=== PATIENT | female | born 1985 | race Hispanic/Latino ===

== ENCOUNTER 2021-11-17 07:34 | Inpatient (IN) | payer OTHER ==
[~2021-11-17] VITALS: Ht 172.7 cm; Wt 77.1 kg
[2021-11-17] MEDS ORDERED: EPHEDRINE SULFATE 50 MG/ML AMPULE IVP PRN (08:30)
[2021-11-17] MEDS ORDERED: PROMETHAZINE HCL 25 MG/ML 1ML AMPULE IM ONE (08:30)
[2021-11-17] MEDS ORDERED: MEPERIDINE-PF 50 MG/ML SYG IVP ONE (08:30)
[2021-11-17] MEDS ORDERED: LACTATED RINGERS 1000ML 1,000 ML IV PRN (08:30)
[2021-11-17] MEDS ORDERED: AMPICILLIN 2GM+NS 100ML 100 ML IV SCH (08:30)
[2021-11-17] MEDS ORDERED: LACTATED RINGERS 500 ML 500 ML IV PRN (08:30)
[2021-11-17] MEDS ORDERED: NALOXONE HCL 0.4 MG/1 ML ML IV PRN (08:30)
[2021-11-17 08:56] LABS: HEMATOCRIT 37.8 % (36-48); MEAN CORPUSCULAR HEMOGLOBIN 33.2 pg (27.0-33.0); MEAN CORPUSCULAR HGB CONC 34.7 g/dL (32.0-36.0); MEAN CORPUSCULAR VOLUME 95.9 fL (79-99); RED BLOOD CELL COUNT(AUTO) 3.94 MIL/uL (4.00-5.50); RED CELL DISTRIBUTION WIDTH 12.2 % (11.0-15.5); WHITE BLOOD COUNT (AUTO) 10.1 K/uL (4.8-10.8)
[2021-11-17 08:58] LABS: APPEARANCE,URINE Clear (CLEAR); BILIRUBIN,URINE Negative (NEGATIVE); COLOR,URINE Yellow (YELLOW); GLUCOSE, URINE (UA) Negative (NEGATIVE); KETONES,URINE Negative (NEGATIVE); LEUKOCYTE ESTERASE ,URINE Trace (NEGATIVE); NITRATE,URINE Negative (NEGATIVE); OCCULT BLOOD,URINE Negative (NEGATIVE); PH,URINE 6.5 (5.0-8.0); PROTEIN,URINE Negative (NEGATIVE)
[2021-11-17 09:05] LABS: AMPHET/METH SCREEN,URINE NEGATIVE (NEGATIVE); BARBITURATE SCREEN, URINE NEGATIVE (NEGATIVE); BENZODIAZEPINES SCREEN,URINE NEGATIVE (NEGATIVE); CANNABINOID SCREEN,URINE NEGATIVE (NEGATIVE); COCAINE SCREEN,URINE NEGATIVE (NEGATIVE); OPIATE SCREEN,URINE NEGATIVE (NEGATIVE); PHENCYCLIDINE SCREEN,URINE NEGATIVE (NEGATIVE)
[2021-11-17 09:14] LABS: BACTERIA,URINE Few /HPF (None Seen); RBC,URINE 0-1 /HPF (0-1); WBC,URINE 0-1 /HPF (0-1)
[2021-11-17] MEDS ORDERED: LIDOCAINE HCL 1% 20 ML VIAL ONE (10:43)
[2021-11-17] MEDS ORDERED: METHYLERGONOVINE MALEATE 0.2 MG/1 ML ML ONE (11:20)
[2021-11-17] MEDS ORDERED: OXYTOCIN-LR 20 UNITS/1000 ML 1,000 ML IV ONE (11:26)
[2021-11-17] MEDS ORDERED: OXYTOCIN-LR 20 UNITS/1000 ML 1,000 ML IV SCH ×2 (12:00→12:30)
[2021-11-17] MEDS ORDERED: ACETAMINOPHEN 325 MG TAB PO PRN (12:30)
[2021-11-17] MEDS ORDERED: BENZOCAINE/LANOLIN/ALOE VERA 60 ML AEROSOL TP PRN (12:30)
[2021-11-17] MEDS ORDERED: LANOLIN 30GM OINTMENT TP PRN (12:30)
[2021-11-17] MEDS ORDERED: MEASLES/MUMPS/RUBELLA VACCINE, LIVE 0.5 ML/VIAL SQ PRN (12:30)
[2021-11-17] MEDS ORDERED: ACETAMINOPHEN WITH CODEINE 1 TAB TAB PO PRN (12:30)
[2021-11-17] MEDS ORDERED: WITCH HAZEL 1 PAD TP PRN (12:30)
[2021-11-17] MEDS ORDERED: IBUPROFEN 600 MG TABLET PO PRN (12:30)
[2021-11-17] MEDS ORDERED: DIPH,PERTUSS(ACELL),TET VAC/PF 0.5 ML VIAL IM PRN (12:30)
[2021-11-17 13:30] VITALS: BP 115/62
[2021-11-17 16:00] VITALS: BP 101/61
[2021-11-17] MEDS ORDERED: VALA500T PO (17:01)
[2021-11-17] MEDS ORDERED: PREN1TAB63 PO (17:01)
[2021-11-17] MEDS ORDERED: FLU VACC QS2021-22(6MOS UP)/PF 60 MCG/0.5 ML ML IM SCH (17:30)
[2021-11-17] MEDS ORDERED: FLU VACC QS2021-22(6MOS UP)/PF 60 MCG/0.5 ML ML IM ONE (18:00)
[2021-11-17 19:18] VITALS: BP 102/58
[2021-11-17] MEDS: AMPICILLIN 1GM+NS 50ML 50 ML IV SCH (20:30)
[2021-11-17] MEDS: DOCUSATE SODIUM 100 MG CAP PO SCH (21:02)
[2021-11-18] VITALS (7 sets, daily range): BP systolic 92–103; BP diastolic 60–67
[2021-11-18] MEDS: AMPICILLIN 1GM+NS 50ML 50 ML IV SCH ×3 (00:30→00:40)
[2021-11-18 06:34] LABS: HEMATOCRIT 32.7 % (36-48); MEAN CORPUSCULAR HEMOGLOBIN 33.4 pg (27.0-33.0); MEAN CORPUSCULAR HGB CONC 33.9 g/dL (32.0-36.0); MEAN CORPUSCULAR VOLUME 98.5 fL (79-99); RED BLOOD CELL COUNT(AUTO) 3.32 MIL/uL (4.00-5.50); RED CELL DISTRIBUTION WIDTH 12.4 % (11.0-15.5); WHITE BLOOD COUNT (AUTO) 13.7 K/uL (4.8-10.8)
[2021-11-18 08:15] LABS: RAPID PLASMA REAGIN NONREACTIVE (NONREACTIVE)
[2021-11-18] MEDS: DOCUSATE SODIUM 100 MG CAP PO SCH ×2 (09:04→20:51)
[2021-11-19 03:50] VITALS: BP 120/70
[2021-11-19 07:20] VITALS: BP 103/62
[2021-11-19] MEDS: DOCUSATE SODIUM 100 MG CAP PO SCH (08:55)
[2021-11-19] MEDS ORDERED: IBUP-2077 PO (10:17)
== END 2021-11-19 10:55 | disposition home or self-care (01) | DRG 807 ==
LOC: EDH 07:34 → LDH 07:35 → OBSVTOIN 07:35 → WSH 13:21
PROVIDERS: ADMIT Obstetrics & Gynecology; ATTEND Obstetrics & Gynecology
PROC: 10E0XZZ Delivery of Products of Conception, External Approach (ICD-10-PCS; principal; 2021-11-17)
PROC: 10907ZC Drainage of Amniotic Fluid, Therapeutic from Products of Conception, Via Natural or Artificial Opening (ICD-10-PCS; 2021-11-17)
PROC: 3E02340 Introduction of Influenza Vaccine into Muscle, Percutaneous Approach (ICD-10-PCS; 2021-11-17)
DX: O80 Encounter for full-term uncomplicated delivery (principal); Z37.0 Single live birth; Z3A.39 39 weeks gestation of pregnancy; Z23 Encounter for immunization
CPT/HCPCS: 36415; 80305; 81001; 85027; 86592; 86701; 86850; 86900; 86901; 87340; 87390; A4351; G0008; G0378; J2210; J2590; Q2035

== ENCOUNTER 2023-08-20 06:37 | Inpatient (IN) | payer OTHER ==
[~2023-08-20] VITALS: Ht 170.2 cm; Wt 78.5 kg
[~2023-08-20 06:37] MED LIST: IBUP-2077 PO; PREN1TAB63 PO; VALA500T PO
[2023-08-20] MEDS ORDERED: LACTATED RINGERS 1000ML 1,000 ML IV SCH (07:00)
[2023-08-20] MEDS ORDERED: CEFAZOLIN SODIUM 2 GM VIAL IVPB PRN (07:00)
[2023-08-20 07:33] LABS: HEMATOCRIT 34.4 % (36-48); MEAN CORPUSCULAR HEMOGLOBIN 33.2 pg (27.0-33.0); MEAN CORPUSCULAR HGB CONC 34.3 g/dL (32.0-36.0); MEAN CORPUSCULAR VOLUME 96.9 fL (79-99); RED BLOOD CELL COUNT(AUTO) 3.55 MIL/uL (4.00-5.50); RED CELL DISTRIBUTION WIDTH 12.8 % (11.0-15.5); WHITE BLOOD COUNT (AUTO) 10.1 K/uL (4.8-10.8)
[2023-08-20 07:54] LABS: APPEARANCE,URINE CLEAR (CLEAR); BILIRUBIN,URINE NEGATIVE (NEGATIVE); COLOR,URINE LIGHT-YELLOW (YELLOW); GLUCOSE, URINE (UA) NEGATIVE (NEGATIVE); KETONES,URINE NEGATIVE (NEGATIVE); LEUKOCYTE ESTERASE ,URINE NEGATIVE Leu/uL (NEGATIVE); NITRATE,URINE NEGATIVE (NEGATIVE); OCCULT BLOOD,URINE NEGATIVE (NEGATIVE); PH,URINE 6.5 (5.0-8.0); PROTEIN,URINE NEGATIVE (NEGATIVE); UROBILINOGEN,URINE 0.2 mg/dL (0.2-1.0)
[2023-08-20 07:55] LABS: ADD UA MICROSCOPIC NO
[2023-08-20] MEDS ORDERED: METOCLOPRAMIDE 10 MG/2 ML VIAL IVP ONE (10:30)
[2023-08-20] MEDS ORDERED: FENTANYL CITRATE PF 50 MCG/1 ML 2ML VIAL ONE (10:41)
[2023-08-20] MEDS ORDERED: MORPHINE PF 100MG/10ML AMP IV ONE (10:51)
[2023-08-20] MEDS ORDERED: CEFAZOLIN SODIUM 2 GM VIAL IVPB ONE (11:10)
[2023-08-20] MEDS ORDERED: PHENYLEPHRINE HCL 10 MG/ML 1ML VIAL IV ONE ×2 (11:14→11:43)
[2023-08-20] MEDS ORDERED: ONDANSETRON 4MG INJ ONE ×2 (11:28→19:44)
[2023-08-20] MEDS ORDERED: CALDOLOR 800MG+NS 250ML 250 ML IV ONE (12:48)
[2023-08-20] MEDS ORDERED: DEXTROSE 5 %-0.45 % NACL 1,000 ML IV PRN (13:00)
[2023-08-20] MEDS ORDERED: 0.9%NACL 10ML VIAL IVP PRN (13:00)
[2023-08-20] MEDS ORDERED: PROMETHAZINE HCL 25 MG/ML 1ML AMPULE IM PRN (13:00)
[2023-08-20] MEDS ORDERED: OXYTOCIN-LR 30 UNITS/500ML 500 ML IV PRN (13:00)
[2023-08-20] MEDS ORDERED: MEPERIDINE-PF 75 MG/ML SYG IM PRN (13:00)
[2023-08-20 16:00] VITALS: BP 96/53; PULSE 60; RESP 20
[2023-08-20] MEDS: CEFAZOLIN SODIUM 2 GM VIAL IVPB SCH (19:30)
[2023-08-20 19:45] VITALS: BP 91/51; PULSE 65; RESP 16
[2023-08-20] MEDS ORDERED: LORATADINE 10 MG TABLET PO PRN (20:00)
[2023-08-20] MEDS ORDERED: ONDANSETRON 4MG INJ IVP PRN (20:00)
[2023-08-20] MEDS: CALDOLOR 800MG+NS 250ML 250 ML IV SCH (21:06)
[2023-08-21 00:10] VITALS: BP 94/52; PULSE 71; RESP 16
[2023-08-21] MEDS: CEFAZOLIN SODIUM 2 GM VIAL IVPB SCH (03:29)
[2023-08-21] MEDS ORDERED: IBUPROFEN 600 MG TABLET PO PRN (03:30)
[2023-08-21] MEDS ORDERED: DIPH,PERTUSS(ACELL),TET VAC/PF 0.5 ML VIAL IM SCH (03:30)
[2023-08-21] MEDS ORDERED: BISACODYL 10 MG SUPP.RECT RC PRN (03:30)
[2023-08-21] MEDS ORDERED: ACETAMINOPHEN WITH CODEINE 1 TAB TAB PO PRN (03:30)
[2023-08-21] MEDS ORDERED: ACETAMINOPHEN 500 MG TABLET PO PRN (03:30)
[2023-08-21] MEDS ORDERED: HYDROCODONE/ACETAMINOPHEN 5/325 MG TAB PO PRN (03:30)
[2023-08-21] MEDS ORDERED: SIMETHICONE 80 MG TAB.CHEW PO PRN (03:30)
[2023-08-21] MEDS ORDERED: LANOLIN 30GM OINTMENT TP PRN (03:30)
[2023-08-21] MEDS ORDERED: MEASLES/MUMPS/RUBELLA VACCINE, LIVE 0.5 ML/VIAL SQ SCH (03:30)
[2023-08-21 03:50] VITALS: BP 93/55; PULSE 77; RESP 16
[2023-08-21] MEDS: CALDOLOR 800MG+NS 250ML 250 ML IV SCH (05:24)
[2023-08-21 06:05] LABS: HEMATOCRIT 32.5 % (36-48); MEAN CORPUSCULAR HEMOGLOBIN 33.1 pg (27.0-33.0); MEAN CORPUSCULAR HGB CONC 33.2 g/dL (32.0-36.0); MEAN CORPUSCULAR VOLUME 99.7 fL (79-99); RED BLOOD CELL COUNT(AUTO) 3.26 MIL/uL (4.00-5.50); RED CELL DISTRIBUTION WIDTH 12.7 % (11.0-15.5); WHITE BLOOD COUNT (AUTO) 13.2 K/uL (4.8-10.8)
[2023-08-21 07:33] VITALS: BP 104/61; PULSE 71; RESP 18
[2023-08-21 07:47] LABS: RAPID PLASMA REAGIN NONREACTIVE (NONREACTIVE)
[2023-08-21] MEDS ORDERED: DOCUSATE SODIUM 100 MG CAP PO SCH (09:00)
[2023-08-21] MEDS ORDERED: ACET-2079 PO (13:11)
[2023-08-21] MEDS ORDERED: FLU VACC QS2022-23(6MOS UP)/PF 60 MCG/0.5 ML ML IM ONE (13:34)
[2023-08-21] MEDS ORDERED: FLU VACC QS2023-24(6MOS UP)/PF 60 MCG/0.5 ML IM SCH (14:30)
== END 2023-08-21 14:05 | disposition home or self-care (01) | DRG 787 ==
LOC: LDH 06:37
PROVIDERS: ADMIT Obstetrics & Gynecology; ATTEND Obstetrics & Gynecology
PROC: 10D00Z1 Extraction of Products of Conception, Low, Open Approach (ICD-10-PCS; principal; 2023-08-20 07:00)
DX: O32.1XX0 Maternal care for breech presentation, not applicable or unspecified (principal); O41.03X0 Oligohydramnios, third trimester, not applicable or unspecified; Z37.0 Single live birth; Z3A.38 38 weeks gestation of pregnancy
CPT/HCPCS: 36415; 59510; 81003; 85027; 86592; 86701; 86850; 86900; 86901; 87340; 87390; 90715; A4344; G0378; J1741; J2274; J2371; J2405; J2765; J3010; J7120; Q2035; A4248; A4649; J0690; L0625; Q2038